=== PATIENT | female | born 1955 | race Caucasian/White ===

== ENCOUNTER 2017-11-03 11:27 | Emergency (ER) | payer MEDICAID ==
[2017-11-03 11:32] VITALS: BP 183/109
[2017-11-03] MEDS ORDERED: ACETAMINOPHEN 500 MG TAB PO ONE ×2 (11:32→11:45)
== END 2017-11-03 13:04 | disposition left against medical advice (07) ==
LOC: EDBD 11:27 → ER 11:27
DX: R11.2 Nausea with vomiting, unspecified (principal); M79.1 Myalgia; Z53.29 Procedure and treatment not carried out because of patient's decision for other reasons
CPT/HCPCS: 93005